=== PATIENT | female | born 1985 | race Caucasian/White ===

== ENCOUNTER 2019-09-04 09:29 | Emergency (ER) | payer OTHER ==
[~2019-09-04] VITALS: Ht 165.1 cm; Wt 59.1 kg
[2019-09-04 09:36] VITALS: Ht 165.1 cm; Wt 59.1 kg
[2019-09-04 10:15] LABS: CALC OSMOLALITY 264 mosm/kg (275-300); CALCIUM 8.7 mg/dL (8.5-10.1); CARBON DIOXIDE 24.5 mmol/L (21.0-32.0); CHLORIDE - SERUM 100 mmol/L (98-107); CREATININE - SERUM 0.7 mg/dL (0.6-1.3); GLUCOSE 118 mg/dL (74-106); POTASSIUM - SERUM 3.8 mmol/L (3.5-5.1); SODIUM 133 mmol/L (136-145); UREA NITROGEN 7 mg/dL (7-18); eGFR NON AFRICAN AMERICAN > 90 mL/min (90-120)
[2019-09-04 10:32] LABS: BASOPHILS 0.1 % (0-2); EOSINOPHILS 0.1 % (0-7); IMMATURE GRANULOCYTES 0.3 % (0-5); LYMPHOCYTES 5.8 % (15-50); MCH 30.7 pg (26.0-34.0); MCHC 33.3 g/dL (31.0-37.0); MCV 92.2 fL (80.0-100.0); MEAN PLATELET VOLUME 10.8 fL (7.4-10.4); MONOCYTES 7.7 % (2-11); PLATELET COUNT 276 10x3/uL (130-400); RBC 4.23 10x6/uL (4.00-5.40); RDW 15.5 % (11.5-14.5); WBC 15.7 10x3/uL (4.8-10.8)
[2019-09-04 10:43] LABS: ALBUMIN 3.8 g/dL (3.4-5.0); ALKALINE PHOSPHATASE 88 U/L (30-120); ALT (SGPT) 12 U/L (10-68); BILIRUBIN - TOTAL 0.36 mg/dL (0.2-1.3); HCG - QUANTITATIVE (MATERNAL) 11863 mIU/mL; PROTEIN - SERUM 7.2 g/dL (6.4-8.2)
[2019-09-04 12:00] VITALS: BP 114/57
== END 2019-09-04 12:25 | disposition home or self-care (01) ==
LOC: D.ER 09:29
PROVIDERS: Family Medicine
DX: O03.9 Complete or unspecified spontaneous abortion without complication (principal)

== ENCOUNTER 2019-09-05 10:12 | Day surgery (SDC) | payer OTHER ==
[~2019-09-05] VITALS: Ht 165.1 cm; Wt 59.5 kg
[2019-09-05 11:04] LABS: HEMATOCRIT 25.9 % (36.0-48.0); HEMOGLOBIN 8.7 g/dL (12-16); MCH 30.2 pg (26.0-34.0); MCHC 33.6 g/dL (31.0-37.0); MCV 89.9 fL (80.0-100.0); MEAN PLATELET VOLUME 10.6 fL (7.4-10.4); PLATELET COUNT 293 10x3/uL (130-400); RBC 2.88 10x6/uL (4.00-5.40); WBC 26.6 10x3/uL (4.8-10.8)
[2019-09-05 11:08] LABS: CALC OSMOLALITY 264 mosm/kg (275-300); CALCIUM 8.5 mg/dL (8.5-10.1); CARBON DIOXIDE 23.4 mmol/L (21.0-32.0); CHLORIDE - SERUM 99 mmol/L (98-107); CREATININE - SERUM 0.8 mg/dL (0.6-1.3); GLUCOSE 123 mg/dL (74-106); HCG SERUM POSITIVE (NEGATIVE); POTASSIUM - SERUM 3.5 mmol/L (3.5-5.1); SODIUM 132 mmol/L (136-145); eGFR NON AFRICAN AMERICAN 87 mL/min (90-120)
[2019-09-05 11:09] LABS: UREA NITROGEN 10 mg/dL (7-18)
[2019-09-05 11:20] LABS: LYMPHOCYTES 6 % (15-50); MONOCYTES 4 % (2-11); NEUTROPHILS 89 % (40-80); PLATELET ESTIMATE NORMAL; PLATELET MORPHOLOGY NORMAL PLT MORPH
[2019-09-05 11:34] LABS: ALBUMIN 3.6 g/dL (3.4-5.0); ALKALINE PHOSPHATASE 85 U/L (30-120); ALT (SGPT) 12 U/L (10-68); BILIRUBIN - TOTAL 0.31 mg/dL (0.2-1.3); HCG - QUANTITATIVE (MATERNAL) 6890 mIU/mL; PROTEIN - SERUM 6.5 g/dL (6.4-8.2)
[2019-09-05 15:14] VITALS: BP 105/50
--- NOTE | 2019-09-05 15:14 | NUR ---
REC'D BACK TO ROOM FROM PACU. AA&O X4, EATING ICE CHIPS AND CONVERSING WITH STAFF. VSS. NO BLEEDING NOTED AT THIS TIME. DENIES NAUSEA. SPRITE PROVIDED PER REQUEST.
--- NOTE | 2019-09-05 15:30 | NUR ---
F/U APPT SCHEDULED WITH [facility] FOR 09/19/19 AT 1100.
[2019-09-05 15:31] VITALS: BP 101/57
--- NOTE | 2019-09-05 15:31 | NUR ---
V/S REMAIN STABLE. SIGNIFICANT OTHER ON UNIT AND TAKEN TO ROOM. PT REQUESTING D/C HOME SITA. POC DISCUSSED. PT VERBALIZES UNDERSTANDING. SRUx2, CL IN REACH. WILL CONT TO MONITOR.
--- NOTE | 2019-09-05 15:43 | NUR ---
PT CALLS OUT GRIPPER INSTALLER LIGHT FOR DRINK AND CRACKERS, STATES SHE FEELS LIKE TRYING TO EAT NOW. SPRITE AND CRACKERS GIVEN, PT ENCOURAGED TO SIP SLOWLY AND REPORT ANY NAUSEA. UNDERSTANDING VERBALIZED.
[2019-09-05 15:47] VITALS: BP 98/51
[2019-09-05 16:01] VITALS: BP 98/56
--- NOTE | 2019-09-05 16:05 | NUR ---
PT CALLS OUT TACTICAL DEBRIEFER LIGHT STATING SHE NEEDS TO GET UP TO BR TO VOID. THIS RN TO ROOM. PT STANDS AT BEDSIDE, DENIES DIZZINESS. PT AMBULATES TO BR WITH STEADY GAIT. PT VOIDS LARGE AMOUNT CLEAR URINE. PERICARE PER PT, PT DRESSES IN OWN CLOTHES. AMBULATES BACK TO BED. PT DENIES NEEDS, STATES SHE IS READY TO GO HOME WHEN POSSIBLE.
[2019-09-05 16:22] VITALS: BP 92/51
--- NOTE | 2019-09-05 16:30 | NUR ---
PT CALLS OUT AND STATES SHE HAS KEPT SPRITE AND CRACKERS DOWN, DENIES NAUSEA. STATES SHE WANTS TO GO HOME. WILL PROCEED WITH DISCHARGE ORDERED.
--- NOTE | 2019-09-05 16:50 | NUR ---
THIS RN TO ROOM FOR DISCHARGE INSTRUCTIONS. INSTRUCTIONS GIVEN WELL F/U DIANNE WITH DR OLSEN. PT VERBALIZES UNDERSTANDING OF INSTRUCTIONS, INFECTION PRECAUTIONS AND S/S TO REPORT. PT DENIES QUESTIONS. RIGHT AC PIV D/C'D AND PRESSURE HELD. PT REFUSES W/C OFF UNIT FOR DISCHARGE, STATES SHE WANTS TO WALK. SIG OTHER ACCOMPANYING PT AND PRESENT TO DRIVE HER HOME.
[2019-09-05 18:28] VITALS: BP 101/57; Ht 165.1 cm; Wt 59.5 kg
== END 2019-09-05 16:50 | disposition home or self-care (01) ==
LOC: D.ER 10:12 → D.LDO 10:12 → EDSTATUS 12:00 → D.LDO 16:50
PROVIDERS: ATTEND Family Medicine
DX: O03.9 Complete or unspecified spontaneous abortion without complication (principal); D64.9 Anemia, unspecified; E87.1 Hypo-osmolality and hyponatremia; D72.829 Elevated white blood cell count, unspecified; N93.9 Abnormal uterine and vaginal bleeding, unspecified